=== PATIENT | male | born 1995 | race Caucasian/White ===

== ENCOUNTER 2018-09-17 16:49 | Emergency (ER) | payer SELFPAY ==
[2018-09-17 17:01] VITALS: BMI 22.1
[2018-09-17 17:04] VITALS: BP 152/90; PULSE 89; RESP 18; TEMP 100; O2SAT 99
--- NOTE | 2018-09-17 17:37 | C.PDOC ---
History Of Present Illness 23 year old male presents to the ED complaining of left upper inner thigh pain for 3 days. Onset after performing high jump. Denies direct trauma. Reports pain is worse when opens legs, walking. States he has not tried any pain medications. L UPPER INNER THIGH PAIN X 3 DAYS. ONSET AFTER PERFORMING HIGH JUMP. DENIES DIRECT TRAUMA. PAIN WORSE WHEN OPENS LEGS, WALKING. NO PAIN MEDS TRIED EXAM NONTOXIC LLE +MILD BRUISING L PROX INNER THIGH W MIN TEND. REPRODUC PAIN W L HIP ABDUCT. AROM WO DIFF SKIN INTACT Time Seen by Provider: 09/17/18 17:26 Chief Complaint (Nursing): Groin Pain History Per: Patient History/Exam Limitations: no limitations Onset/Duration Of Symptoms: Days (3) Current Symptoms Are (Timing): Still Present Past Medical History Reviewed: Historical Data, Nursing Documentation, Vital Signs Vital Signs: Last Vital Signs Temp 100 F H 09/17/18 17:01 Pulse 89 09/17/18 17:01 Resp 18 09/17/18 17:01 BP 152/90 H 09/17/18 17:01 Pulse Ox 99 09/17/18 17:01 - Medical History PMH: No Chronic Diseases Surgical History: No Surg Hx Family History: States: No Known Family Hx - Social History Hx Alcohol Use: No Hx Substance Use: No - Immunization History Hx Influenza Vaccination: No Review Of Systems Except As Marked, All Systems Reviewed And Found Negative. Musculoskeletal: Positive for: Leg Pain (left upper inner thigh pain ) Neurological: Negative for: Weakness, Numbness Physical Exam - Physical Exam Appears: Non-toxic, No Acute Distress Skin: Warm, Dry, No Rash Head: Normacephalic Eye(s): bilateral: Normal Inspection Neck: Supple Chest: Symmetrical Cardiovascular: Rhythm Regular Respiratory: No Rales, No Rhonchi, No Wheezing, Other (NARD) Extremity: Normal ROM, Other (LLE +MILD BRUISING L PROX INNER THIGH W MIN TEND. REPRODUC PAIN W L HIP ABDUCT. SKIN INTACT) Neurological/Psych: Oriented x3, Normal Speech, Normal Motor, Normal Sensation Gait: Steady ED Course And Treatment O2 Sat by Pulse Oximetry: 99 (RA) Pulse Ox Interpretation: Normal Medical Decision Making Medical Decision Making: Plan - Motrin 800mg PO On reassessment, patient is resting comfortably, and is in no acute distress. Patient was instructed to follow up with physician/clinic in 1-2 days for further evaluation. Disposition Counseled Patient/Family Regarding: Diagnosis, Need For Followup, Rx Given - Disposition Referrals: YOUR,PMD [Other] Disposition: HOME/ ROUTINE Disposition Time: 17:37 Condition: IMPROVED Prescriptions: Ibuprofen [Motrin] 600 mg PO Q6 #30 tab Instructions: Groin Strain (DC) Forms: [facility] (Stateless) - Clinical Impression Clinical Impression: Groin strain - Scribe Statement The provider has reviewed the documentation as recorded by the Scribarmando Valle All medical record entries made by the Evertonibarmando were at my direction and personally dictated by me. I have reviewed the chart and agree that the record accurately reflects my personal performance of the history, physical exam, medical decision making, and the department course for this patient. I have also personally directed, reviewed, and agree with the discharge instructions and disposition.
== END 2018-09-17 17:50 | disposition home or self-care (01) ==
LOC: C.ER 16:49
DX: S39.011A Strain of muscle, fascia and tendon of abdomen, initial encounter (principal); Y93.39 Activity, other involving climbing, rappelling and jumping off